=== PATIENT | male | born 1950 | race Caucasian/White ===

== ENCOUNTER → 2018-07-17 | Outpatient (CLI) | payer OTHER | LOC: CIMAGING 14:06 | PROVIDERS: ATTEND Family Medicine | DX: J45.909 Unspecified asthma, uncomplicated (principal); R05 Cough | CPT/HCPCS: 71046-PO ==

== ENCOUNTER → 2018-12-24 | Outpatient (CLI) | payer OTHER | LOC: EDSTATUS 07:45 → CIMAGING 14:45 | PROVIDERS: ATTEND Family Medicine | DX: M25.552 Pain in left hip (principal); M25.571 Pain in right ankle and joints of right foot; M71.21 Synovial cyst of popliteal space [Baker], right knee | CPT/HCPCS: 73521-PO; 73610-PO ==

== ENCOUNTER → 2018-12-26 | Outpatient (CLI) | payer OTHER | LOC: BRMIMAGING 12:29 | PROVIDERS: ATTEND Family Medicine | DX: R22.41 Localized swelling, mass and lump, right lower limb (principal) | CPT/HCPCS: 93971-PO ==